=== PATIENT | male | born 1995 | race Caucasian/White ===

== ENCOUNTER → 2017-09-25 | Outpatient (CLI) | payer BC ==
[2017-09-25 20:12] LABS: Hepatitis B Surface AB- Quant 3.5 mIU/mL
[2017-09-29 11:22] LABS: Mumps Virus IgM Antibody 0.24 IV (<=0.79)
== END | disposition home or self-care (01) ==
LOC: LABWHC1 11:51
PROVIDERS: ATTEND Family Medicine
DX: Z11.1 Encounter for screening for respiratory tuberculosis (principal); Z28.3 Underimmunization status
CPT/HCPCS: 36415; 86480; 86706; 86735; 86762; 86765; 86787